=== PATIENT | female | born 1970 | race Caucasian/White ===

== ENCOUNTER 2018-04-21 11:33 | Emergency (ER) | payer MEDICAID ==
[~2018-04-21] VITALS: Ht 160 cm; Wt 74.2 kg
[~2018-04-21 11:33] MED LIST: BACDS PO; HYDR-3965 PO
[2018-04-21 11:41] VITALS: BP 130/54
[2018-04-21] MEDS ORDERED: LIDOcaine 1.5% w/epinephrine 1:200,000 5ml ampul IJ ONE (12:40)
[2018-04-21] MEDS ORDERED: TETanus/Pertussis (Acell)/Diphther VAC/PF (Tdap-Adult) 0.5ml syringe IM ONE (12:40)
[2018-04-21] MEDS ORDERED: LIDOcaine 1% w/epiNEPHrine 1:200,000 30ml vial IJ ONE (12:50)
[2018-04-21] MEDS ORDERED: TRAM50TA2 PO (12:51)
[2018-04-21] MEDS ORDERED: CEPH-572 PO (12:51)
[2018-04-21] MEDS ORDERED: SULF1TAB49 PO (12:51)
[2018-04-21] MEDS ORDERED: CefTRIAXone 1000mg IM Kit (w/lidocaine diluent) IM ONE (12:55)
[2018-04-21] MEDS ORDERED: sulfamethoxazole/trimethoprim DS (800/160mg) tablet PO ONE (12:55)
== END 2018-04-21 13:32 | disposition home or self-care (01) ==
LOC: ER 11:33
DX: L02.512 Cutaneous abscess of left hand (principal); F12.90 Cannabis use, unspecified, uncomplicated; F15.90 Other stimulant use, unspecified, uncomplicated; F17.200 Nicotine dependence, unspecified, uncomplicated; Z88.6 Allergy status to analgesic agent; Z86.14 Personal history of Methicillin resistant Staphylococcus aureus infection
CPT/HCPCS: 10060; 87070; 90471; 90715; 96372; 99283; J0696; J3490

== ENCOUNTER 2020-02-10 19:17 | Inpatient (IN) | payer MEDICAID ==
[~2020-02-10] VITALS: Ht 160 cm; Wt 68.2 kg
[2020-02-10] MEDS ORDERED: normal saline 1000ML IV soln IV ONE (19:50)
[2020-02-10] MEDS ORDERED: acetaminophen 325mg tablet PO STA (19:50)
[2020-02-10 20:34] LABS: BASOPHILS % (AUTO) 0.4 % (0-1); EOSINOPHILS % (AUTO) 0.2 % (0-6); HEMATOCRIT 35.9 % (35.0-45.0); HEMOGLOBIN 12.2 g/dl (12.0-16.0); LYMPHOCYTES # (AUTO) 1.3 X10'3 (1.1-4.8); LYMPHOCYTES % (AUTO) 13.2 % (21-51); MEAN CORPUSCULAR HEMOGLOBIN 29.8 PG (27.0-31.0); MEAN CORPUSCULAR VOLUME 87.5 FL (78-98); MEAN PLATELET VOLUME 7.9 FL (7.4-10.4); MONOCYTES # (AUTO) 1.2 X10'3 (0-0.9); MONOCYTES % (AUTO) 12.7 % (2-12); NEUTROPHILS # (AUTO) 7.2 X10'3 (1.8-7.7); NEUTROPHILS % (AUTO) 73.5 % (42-75); PLATELET COUNT 266 X10'3 (140-440); WHITE BLOOD COUNT 9.8 X10'3 (4.5-11.0)
[2020-02-10] MEDS ORDERED: iohexol 350MG/ML 100ml bottle IV ONE (20:47)
[2020-02-10 20:50] LABS: ALANINE AMINOTRANSFERASE 39 U/L (12-78); ALBUMIN 2.8 G/DL (3.4-5.0); ALBUMIN/GLOBULIN RATIO 0.6 (1.1-1.5); ALKALINE PHOSPHATASE 132 IU/L (46-116); ANION GAP 8 (8-16); ASPARTATE AMINO TRANSFERASE 20 U/L (10-37); BILIRUBIN,TOTAL 0.8 MG/DL (0.1-1.0); BLOOD UREA NITROGEN 12 MG/DL (7-18); CALCIUM 8.3 MG/DL (8.5-10.1); CHLORIDE 96 MMOL/L (99-107); CREATININE 1.34 MG/DL (0.40-0.90); GLUCOSE 123 MG/DL (70-104); POTASSIUM 3.6 MMOL/L (3.5-5.1); SODIUM 130 MMOL/L (135-145); TOTAL CARBON DIOXIDE 25.8 MMOL/L (24-32); TOTAL PROTEIN 7.8 G/DL (6.4-8.2); eGFR 42 ML/MIN
[2020-02-10 20:56] LABS: C-REACTIVE PROTEIN 18.51 MG/DL (0.0-0.5); MAGNESIUM 1.7 MG/DL (1.5-2.4)
[2020-02-10] MEDS ORDERED: NO HOME MEDS ×2 (21:39→22:06)
[2020-02-10 22:06] LABS: CLARITY,URINE CLEAR (Clear); COLOR,URINE YELLOW (Yellow); GLUCOSE, URINE NEGATIVE (Neg); KETONES,URINE NEGATIVE (Neg); LEUKOCYTE ESTERASE ,URINE TRACE (Neg); NITRITES, URINE POSITIVE (Neg); OCCULT BLOOD,URINE LARGE (Neg); PH,URINE 5.5 (4.8-8.0); PROTEIN,URINE 30 mg/dl (Neg); UROBILINOGEN,URINE >=8.0 E.U/dL (0.2-1.0)
[2020-02-10 22:08] LABS: UA COLLECTION TYPE CLN CATCH MIDSTREAM
[2020-02-10] MEDS ORDERED: HYDROcodone/acetaminophen 5mg/325mg tablet PO PRN (22:10)
[2020-02-10] MEDS ORDERED: magnesium hydroxide 30ml (MOM) UD suspension PO PRN (22:10)
[2020-02-10] MEDS ORDERED: mag hydrox/Alum hydrox/simeth 30ml oral suspension PO PRN (22:10)
[2020-02-10] MEDS ORDERED: ondansetron/PF 4mg/2ml inj IV PRN (22:10)
[2020-02-10] MEDS ORDERED: morphine 2 MG/ML inj. syringe IV PRN (22:10)
[2020-02-10] MEDS ORDERED: acetaminophen 325mg tablet PO PRN ×2 (22:10)
[2020-02-10 22:13] LABS: SQUAMOUS EPITHELIAL CELL,UR MODERATE /LPF (FEW)
[2020-02-10 22:14] LABS: WBC,URINE 20-30 /HPF (0-4)
[2020-02-10 22:15] LABS: BACTERIA,URINE 2+ /HPF (Neg); WBC CLUMPS,URINE FEW /HPF (NEGATIVE)
[2020-02-10 22:19] LABS: URINE AMPHETAMINE SCREEN POSITIVE (Neg); URINE BARBITUATE SCREEN NEGATIVE (Neg); URINE BENZODIAZEPINES SCREEN NEGATIVE (Neg); URINE CANNABINOID SCREEN POSITIVE (Neg); URINE COCAINE SCREEN NEGATIVE (Neg); URINE METHADONE SCREEN NEGATIVE (Neg); URINE OPIATE SCREEN NEGATIVE (Neg); URINE PHENCYCLIDINE SCREEN NEGATIVE (Neg)
--- NOTE | 2020-02-10 22:37 | NUR ---
Patient in room ED 1. I have received report from Linda MARQUES and had the opportunity to ask questions and assume patient care.
[2020-02-10 22:45] VITALS: BP 95/47
[2020-02-10] MEDS: normal saline 1000ml 1,000 ML IV SCH (23:00)
[2020-02-11 06:00] VITALS: BP 113/71
[2020-02-11 06:33] LABS: BASOPHILS % (AUTO) 0.4 % (0-1); EOSINOPHILS # (AUTO) 0.1 X10'3 (0-0.9); EOSINOPHILS % (AUTO) 0.8 % (0-6); HEMATOCRIT 39.3 % (35.0-45.0); HEMOGLOBIN 12.9 g/dl (12.0-16.0); LYMPHOCYTES # (AUTO) 0.9 X10'3 (1.1-4.8); LYMPHOCYTES % (AUTO) 10.6 % (21-51); MEAN CORPUSCULAR HEMOGLOBIN 29.4 PG (27.0-31.0); MEAN CORPUSCULAR HGB CONC 32.7 g/dL (33.0-36.5); MEAN PLATELET VOLUME 8.1 FL (7.4-10.4); MONOCYTES # (AUTO) 1.2 X10'3 (0-0.9); MONOCYTES % (AUTO) 14.5 % (2-12); NEUTROPHILS # (AUTO) 6.1 X10'3 (1.8-7.7); NEUTROPHILS % (AUTO) 73.7 % (42-75); PLATELET COUNT 225 X10'3 (140-440); RED BLOOD COUNT 4.37 X10'6 (4.20-5.60); RED CELL DISTRIBUTION WIDTH 14.8 % (11.5-14.5); WHITE BLOOD COUNT 8.2 X10'3 (4.5-11.0)
--- NOTE | 2020-02-11 06:38 | NUR ---
Problems reprioritized. Patient report given, questions answered & plan of care reviewed with Adeline MARQUES.
[2020-02-11 06:41] LABS: ALBUMIN 2.4 G/DL (3.4-5.0); ANION GAP 11 (8-16); BLOOD UREA NITROGEN 9 MG/DL (7-18); BUN/CREATININE RATIO 8.6 (6.6-38.0); CALCIUM 8.2 MG/DL (8.5-10.1); CHLORIDE 103 MMOL/L (99-107); CREATININE 1.05 MG/DL (0.40-0.90); GLUCOSE 82 MG/DL (70-104); SODIUM 135 MMOL/L (135-145); TOTAL CARBON DIOXIDE 20.7 MMOL/L (24-32); eGFR 55 ML/MIN
--- NOTE | 2020-02-11 06:44 | NUR ---
Patient in room [facility] 4024. I have received report from SHELLI Tejeda and had the opportunity to ask questions and assume patient care.
[2020-02-11 08:00] VITALS: BP_SYST 91; BP_SYST 93; BP_SYST 96; BP_DIAS 53; BP_DIAS 54; BP_DIAS 58
[2020-02-11] MEDS: CefTRIAXone/D5W-Rocephin 1gm 50 ML IV SCH (08:00)
[2020-02-11] MEDS: HYDROcodone/acetaminophen 10/325mg tab PO PRN ×2 (08:11→19:42)
[2020-02-11 10:00] VITALS: BP 98/48
[2020-02-11] MEDS: morphine 2 MG/ML inj. syringe IV PRN ×2 (12:06→16:28)
[2020-02-11] MEDS: normal saline 1000ml 1,000 ML IV SCH ×3 (12:11→22:00)
[2020-02-11] MEDS ORDERED: HYDROmorphone 1 mg/ml syringe IV PRN (17:05)
--- NOTE | 2020-02-11 17:05 | NUR ---
Student documentation: I have reviewed assessment performed and documented by Esmer Jacome SN [facility].
[2020-02-11 18:30] VITALS: BP 98/51
--- NOTE | 2020-02-11 18:38 | NUR ---
Problems reprioritized. Patient report given, questions answered & plan of care reviewed with SHELLI Triana.
[2020-02-11] MEDS: lactobacillus rhamnosus 10,000 MMU CELLS/CAPSULE PO SCH (19:30)
--- NOTE | 2020-02-11 21:49 | NUR ---
reviewed and agree with [facility] assessment.
[2020-02-11 22:00] VITALS: BP 92/50
--- NOTE | 2020-02-12 01:27 | NUR ---
I called report to A Jyotsna RN and she will be transferred to Surgical floor for house convenience to room 355A.
--- NOTE | 2020-02-12 01:35 | NUR ---
Patient arrived via WC on room air in no apparent distress. Call light and items of frequent use within reach.
[2020-02-12 01:45] VITALS: BP 83/50
[2020-02-12 02:14] VITALS: BP_SYST 82; BP_SYST 83; BP_SYST 84; BP_DIAS 39; BP_DIAS 45; BP_DIAS 50
--- NOTE | 2020-02-12 02:19 | NUR ---
Pagevinny Carpenter regarding low BP and pain c/o 02/19 to right flank.
[2020-02-12] MEDS ORDERED: normal saline 1000ml 1,000 ML IV ONE (02:20)
[2020-02-12] MEDS: HYDROcodone/acetaminophen 10/325mg tab PO PRN ×3 (02:28→20:45)
[2020-02-12] MEDS ORDERED: normal saline 1000ml 1,000 ML IVB ONE (04:15)
--- NOTE | 2020-02-12 04:15 | NUR ---
New order for another 1Liter bolus for low BP following bolus left upper arm 87/35 and right upper arm 88/54
[2020-02-12 05:24] LABS: BASOPHILS % (AUTO) 0.6 % (0-1); EOSINOPHILS # (AUTO) 0.1 X10'3 (0-0.9); EOSINOPHILS % (AUTO) 2.1 % (0-6); HEMATOCRIT 35.5 % (35.0-45.0); HEMOGLOBIN 11.7 g/dl (12.0-16.0); LYMPHOCYTES # (AUTO) 1.4 X10'3 (1.1-4.8); LYMPHOCYTES % (AUTO) 24.8 % (21-51); MEAN CORPUSCULAR HEMOGLOBIN 29.5 PG (27.0-31.0); MEAN CORPUSCULAR HGB CONC 32.8 g/dL (33.0-36.5); MONOCYTES # (AUTO) 0.6 X10'3 (0-0.9); NEUTROPHILS # (AUTO) 3.5 X10'3 (1.8-7.7); NEUTROPHILS % (AUTO) 61.5 % (42-75); PLATELET COUNT 239 X10'3 (140-440); RED BLOOD COUNT 3.95 X10'6 (4.20-5.60); RED CELL DISTRIBUTION WIDTH 14.4 % (11.5-14.5); WHITE BLOOD COUNT 5.7 X10'3 (4.5-11.0)
[2020-02-12 06:04] LABS: ALBUMIN 2.3 G/DL (3.4-5.0); ANION GAP 9 (8-16); BLOOD UREA NITROGEN 8 MG/DL (7-18); BUN/CREATININE RATIO 8.7 (6.6-38.0); CHLORIDE 107 MMOL/L (99-107); CREATININE 0.92 MG/DL (0.40-0.90); GLUCOSE 75 MG/DL (70-104); POTASSIUM 3.6 MMOL/L (3.5-5.1); SODIUM 139 MMOL/L (135-145); TOTAL CARBON DIOXIDE 22.7 MMOL/L (24-32); eGFR 64 ML/MIN
--- NOTE | 2020-02-12 06:16 | NUR ---
Reported off to Adeline MARQUES. Patient is resting with relaxed and unlabored respirations on room air. In no apparent distress. Call light and items of frequent use within reach.
--- NOTE | 2020-02-12 06:21 | NUR ---
Patient in room [facility] 355. I have received report from SHELLI Scanlon and had the opportunity to ask questions and assume patient care.
[2020-02-12 07:00] VITALS: BP 100/68
[2020-02-12] MEDS: lactobacillus rhamnosus 10,000 MMU CELLS/CAPSULE PO SCH ×2 (08:17→20:45)
[2020-02-12] MEDS: CefTRIAXone/D5W-Rocephin 1gm 50 ML IV SCH (08:19)
[2020-02-12] MEDS: enoxaparin 40mg/0.4ml syringe SUBCUT SCH (08:19)
[2020-02-12 10:30] VITALS: BP_SYST 84; BP_SYST 93; BP_SYST 98; BP_DIAS 42; BP_DIAS 51; BP_DIAS 54
[2020-02-12 11:00] VITALS: BP 84/42
[2020-02-12] MEDS: normal saline 1000ml 1,000 ML IV SCH ×2 (12:46→20:45)
[2020-02-12 18:00] VITALS: BP 120/58
--- NOTE | 2020-02-12 18:37 | NUR ---
Problems reprioritized. Patient report given, questions answered & plan of care reviewed with SHELLI Anaya.
--- NOTE | 2020-02-12 18:40 | NUR ---
Patient in room [facility] 355. I have received report from MARTINA MARQUES and had the opportunity to ask questions and assume patient care.
[2020-02-13] VITALS: BP 127/56
[2020-02-13 05:17] LABS: BASOPHILS % (AUTO) 0.7 % (0-1); EOSINOPHILS # (AUTO) 0.1 X10'3 (0-0.9); EOSINOPHILS % (AUTO) 2.7 % (0-6); HEMOGLOBIN 10.6 g/dl (12.0-16.0); LYMPHOCYTES # (AUTO) 1.6 X10'3 (1.1-4.8); LYMPHOCYTES % (AUTO) 31.7 % (21-51); MEAN CORPUSCULAR HEMOGLOBIN 29.6 PG (27.0-31.0); MEAN CORPUSCULAR HGB CONC 33.2 g/dL (33.0-36.5); MEAN CORPUSCULAR VOLUME 89.3 FL (78-98); MONOCYTES # (AUTO) 0.5 X10'3 (0-0.9); MONOCYTES % (AUTO) 10.7 % (2-12); NEUTROPHILS # (AUTO) 2.7 X10'3 (1.8-7.7); NEUTROPHILS % (AUTO) 54.2 % (42-75); PLATELET COUNT 283 X10'3 (140-440); RED BLOOD COUNT 3.58 X10'6 (4.20-5.60); RED CELL DISTRIBUTION WIDTH 14.5 % (11.5-14.5)
[2020-02-13 05:23] LABS: ANION GAP 8 (8-16); BLOOD UREA NITROGEN 7 MG/DL (7-18); CALCIUM 7.8 MG/DL (8.5-10.1); CHLORIDE 107 MMOL/L (99-107); CREATININE 0.88 MG/DL (0.40-0.90); GLUCOSE 81 MG/DL (70-104); POTASSIUM 3.7 MMOL/L (3.5-5.1); SODIUM 140 MMOL/L (135-145); TOTAL CARBON DIOXIDE 25.4 MMOL/L (24-32); eGFR 68 ML/MIN
[2020-02-13] MEDS: normal saline 1000ml 1,000 ML IV SCH (05:44)
--- NOTE | 2020-02-13 06:35 | NUR ---
Patient in room [facility] 355. I have received report from SHELLI Anaya and had the opportunity to ask questions and assume patient care.
[2020-02-13 07:05] VITALS: BP 124/70
[2020-02-13 08:12] VITALS: BP_SYST 124; BP_SYST 126; BP_DIAS 70; BP_DIAS 72; BP_DIAS 74
[2020-02-13] MEDS: lactobacillus rhamnosus 10,000 MMU CELLS/CAPSULE PO SCH (09:11)
[2020-02-13] MEDS: enoxaparin 40mg/0.4ml syringe SUBCUT SCH (09:12)
[2020-02-13 11:00] VITALS: BP 114/55
[2020-02-13] MEDS ORDERED: levoFLOXACIN 750MG TABLET PO SCH (11:00)
[2020-02-13] MEDS ORDERED: LEVO750T46 PO (12:33)
--- NOTE | 2020-02-13 17:00 | NUR ---
DC inst provided to pt. IV DC'd, tip intact. All belongings sent w/pt. WC to front lobby.
== END 2020-02-13 17:04 | disposition home or self-care (01) | DRG 720 ==
LOC: ER 19:17 → ED HOLD 22:10 → ORTHO 4S 22:43 → SUR 3N 02-12 01:45
PROVIDERS: ADMIT Internal Medicine; ATTEND Family Medicine
DX: A41.9 Sepsis, unspecified organism (principal); N10 Acute pyelonephritis; N17.0 Acute kidney failure with tubular necrosis; E86.0 Dehydration; M94.0 Chondrocostal junction syndrome [Tietze]; Z79.899 Other long term (current) drug therapy; Z20.828 Contact with and (suspected) exposure to other viral communicable diseases
CPT/HCPCS: 36415; 71275; 74177; 76937; 80048; 80053; 80305; 81001; 83605; 83735; 83880; 84145; 84484; 85025; 86140; 87040; 87077; 87081; 87088; 87186; 87502; 87503; 87635; 93005; 96365; 96375; 99285; G0378; J0696; J1650; J2270; J7030; Q9967